=== PATIENT | female | born 1955 | race Caucasian/White ===

== ENCOUNTER 2017-02-02 05:28 | Day surgery (SDC) | payer BC, OTHER ==
[~2017-02-02] VITALS: Ht 160 cm; Wt 90.7 kg
[~2017-02-02 05:28] MED LIST: CELEXA20 MG PO; CELEXA40 MG PO; DAILY VALUE1 EACH PO; VITAMIN D2000 UNIT PO
[2017-02-02 06:30] VITALS: BP 163/78
[2017-02-02 14:55] VITALS: BP 153/74
[2017-02-02 16:00] VITALS: BP 146/73
== END 2017-02-02 16:25 | disposition home or self-care (01) ==
LOC: SDC 05:28 → NUC 08:00 → SDC 08:00
DX: C50.412 Malignant neoplasm of upper-outer quadrant of left female breast (principal); Z17.0 Estrogen receptor positive status [ER+]; F41.8 Other specified anxiety disorders; E55.9 Vitamin D deficiency, unspecified; Z87.891 Personal history of nicotine dependence; M81.0 Age-related osteoporosis without current pathological fracture; Z80.3 Family history of malignant neoplasm of breast; Z83.3 Family history of diabetes mellitus; Z80.2 Family history of malignant neoplasm of other respiratory and intrathoracic organs; Z88.5 Allergy status to narcotic agent
CPT/HCPCS: 78195; 78999; 88305; 88307; 88331; 88332; A9541; J0131; J0330; J1100; J1170; J2250; J2405; J3010; S0020